=== PATIENT | male | born 1955 | race Two or more races ===

== ENCOUNTER 2019-01-31 05:09 | Day surgery (SDC) | payer OTHER ==
[2019-01-30 11:53] VITALS: BMI 30.2
[2019-01-31 12:23] VITALS: BP 136/81; PULSE 82; TEMP 98
--- NOTE | 2019-01-31 13:44 | OP ---
Operative Note - Note: Operative Date: 01/31/19 Pre-Operative Diagnosis: L ureteral calculus Operation: L ureteroscopic laser lithotripsy and JJ stent insertion Surgeon: Eric Frazier Anesthesia: General Specimens Removed: L ureteral calculus Drains & Tubes with Location: 6 fr 26 cm L JJ stent Operative Report Dictated: Yes
[2019-01-31] MEDS ORDERED: oxyCODONE HCL 5 MG TABLET PO PRN (14:19)
[2019-01-31] MEDS ORDERED: LACTATED RINGERS SOLUTION 1,000 ML IV SCH (14:30)
== END 2019-01-31 13:10 | disposition home or self-care (01) ==
LOC: JASU-SURG 05:09
PROVIDERS: ATTEND Urology
DX: Z53.8 Procedure and treatment not carried out for other reasons (principal)
CPT/HCPCS: 82962

== ENCOUNTER 2019-02-14 11:50 | Day surgery (SDC) | payer OTHER ==
[2019-02-14 12:32] VITALS: BMI 28.3
--- NOTE | 2019-02-14 13:26 | OP ---
Operative Note - Note: Operative Date: 02/14/19 Pre-Operative Diagnosis: BPH w LUTS Operation: urolift x 5 Findings: BPH Post-Operative Diagnosis: Same as Pre-op Surgeon: Eric Frazier Anesthesiologist/CLINICAL RESOURCE DIRECTOR: Martin Burch Anesthesia: General Drains & Tubes with Location: 18 fr ugarte Operative Report Dictated: Yes
[2019-02-14] MEDS ORDERED: MIDAZOLAM HCL 2 MG/2 ML SINGLE DOSE VIAL ONE ×2 (13:36→13:45)
[2019-02-14] MEDS ORDERED: DEXAMETHASONE SOD PHOSPHATE 4 MG/1 ML VIAL ONE ×2 (13:36→13:45)
[2019-02-14] MEDS ORDERED: ceFAZolin SODIUM 1 GM VIAL ONE (13:37)
[2019-02-14] MEDS ORDERED: LIDOCAINE HCL/PF 2% SDV 5ML VIAL ONE (13:45)
[2019-02-14] MEDS ORDERED: PROPOFOL 20 ML ONE ×2 (13:45)
[2019-02-14] MEDS ORDERED: LIDOCAINE HCL 2% JELLY (5 ML/TUBE) ONE (13:45)
[2019-02-14] MEDS ORDERED: KETOROLAC TROMETHAMINE 30 MG/1 ML VIAL ONE (13:45)
[2019-02-14] MEDS ORDERED: SUCCINYLCHOLINE CHLORIDE 200 MG/10 ML SYRINGE ONE (13:45)
[2019-02-14] MEDS ORDERED: ceFAZolin SODIUM 1 GM VIAL IVPB ONE (14:07)
[2019-02-14] MEDS ORDERED: HYDROmorphone HCl 2 MG/ML VIAL ONE (15:30)
--- NOTE | 2019-02-14 15:43 | OP ---
DATE OF OPERATION: 02/14/2019 PREOPERATIVE DIAGNOSIS: Benign prostatic hypertrophy with lower urinary tract symptoms. POSTOPERATIVE DIAGNOSIS: Benign prostatic hypertrophy with lower urinary tract symptoms. PROCEDURE: Urolith x5. SURGEON: Eric Cherry MD CONDITIONER TUMBLER OPERATOR: None. ANESTHESIA: General via laryngeal mask. ANESTHESIOLOGIST: Martin Burch MD SPECIMENS: None. CULTURES: None. DRAINS: 18-Irish Bermudez catheter. ESTIMATED BLOOD LOSS: Negligible. COMPLICATIONS: None. DESCRIPTION OF PROCEDURE: Patient was brought into the operating room. Placed on the operating room table in the supine position. After administration of general anesthesia via laryngeal mask, intravenous antibiotics were administered. The patient was placed in the dorsal lithotomy position. The genitals and perineum were prepped and draped in the usual sterile manner. The urethral meatus was dilated from 18 to 26 Irish with curved sounds. The urolith scope was inserted into the anterior urethra under direct vision. The anterior urethra was normal. The prostatic urethra measured approximately 4-1/2 cm in length. Demonstrated moderate bilobar occlusion. The bladder was entered and thoroughly inspected. There were no foreign bodies, tumors, stones, inflammation. Both ureteral orifices were in their usual location with clear efflux bilaterally. Now the urolith implant was inserted. The 1st one was placed at the level of the verumontanum on the left side at the 2 o'clock position. Another one was placed on the right side at the 10 o'clock position at the level of the verumontanum. Now another one was placed distal to the bladder neck at the left side 2 o'clock position and another one at the right side distal to the bladder neck at the 10 o'clock position. Upon reinspection, there was additional obstruction on the right lateral lobe of the prostate distally, so a 5th implant was placed at this location. Now there was a wide open channel. Hemostasis was adequate. The bladder was left full. Instrument removed. An 18-Irish Bermudez catheter was placed. It was placed on gravity drainage with 10 mL in the balloon, drained minimally blood tinged. Tolerated the procedure well. Transferred to the recovery room in stable condition. ERIC CHERRY M.D. [id number]
[2019-02-14] MEDS ORDERED: ONDANSETRON 4 MG/2 ML VIAL ONE (15:47)
[2019-02-14] MEDS ORDERED: ONDANSETRON 4 MG/2 ML VIAL IVPUSH PRN (16:43)
[2019-02-14] MEDS ORDERED: oxyCODONE HCL 5 MG TABLET PO PRN ×2 (16:43)
[2019-02-14] MEDS ORDERED: HYDROmorphone HCl 2 MG/ML VIAL IVPB ONE (16:44)
[2019-02-14] MEDS ORDERED: LACTATED RINGERS SOLUTION 1,000 ML IV SCH (16:45)
[2019-02-14 16:46] VITALS: TEMP 97.6
[2019-02-14 18:06] VITALS: BP 145/82; PULSE 74
== END 2019-02-14 18:08 | disposition home or self-care (01) ==
LOC: JASU-SURG 11:50
PROVIDERS: ATTEND Urology
PROC: 0T7D8DZ Dilation of Urethra with Intraluminal Device, Via Natural or Artificial Opening Endoscopic (ICD-10-PCS; principal; 2019-02-14 13:00)
DX: N40.1 Benign prostatic hyperplasia with lower urinary tract symptoms (principal)
CPT/HCPCS: 82962; 94760

== ENCOUNTER 2021-06-17 04:19 | Inpatient (IN) | payer OTHER ==
[2021-06-17] MEDS ORDERED: PROPOFOL 20 ML ONE ×2 (13:13)
[2021-06-17] MEDS ORDERED: MIDAZOLAM HCL 2 MG/2 ML SINGLE DOSE VIAL ONE (13:13)
[2021-06-17] MEDS ORDERED: ceFAZolin SODIUM 1 GM VIAL IVPB ONE (13:26)
[2021-06-17] MEDS ORDERED: ONDANSETRON 4 MG/2 ML VIAL IVPUSH PRN (14:40)
[2021-06-17] MEDS ORDERED: LACTATED RINGERS SOLUTION 1,000 ML IV SCH (14:45)
[2021-06-17 16:19] LABS: BASO % 0.6 % (0-2.0); EOS % 9.2 % (0-4.5); HEMATOCRIT 39.3 % (35.4-49); HEMOGLOBIN 13.7 GM/dL (11.7-16.9); LYMPH % 26.6 % (8-40); MCHC 34.9 g/dl (32.0-35.9); MEAN CELL VOLUME 83.1 fl (80-96); MONO % 10.6 % (3.8-10.2); PLATELET COUNT 122 10^3/uL (134-434); RBC 4.73 M/mm3 (4.00-5.60); RDW 13.3 % (11.9-15.9); WHITE BLOOD COUNT 3.5 K/mm3 (4.0-10.0)
[2021-06-17 16:44] LABS: CALCIUM 7.9 mg/dL (8.5-10.1)
[2021-06-17 16:45] LABS: ALBUMIN 3.1 g/dl (3.4-5.0); BLOOD UREA NITROGEN 18.4 mg/dL (7-18)
[2021-06-17 16:48] LABS: TOT PROT 5.9 g/dl (6.4-8.2)
[2021-06-17 16:50] LABS: BILIRUBIN,TOTAL 0.6 mg/dL (0.2-1)
[2021-06-17] MEDS: SODIUM CHLORIDE 0.45% 1,000 ML IV SCH (17:30)
[2021-06-17] MEDS ORDERED: oxyCODONE HCL 5 MG TABLET PO PRN (17:45)
[2021-06-17] MEDS: metFORMIN HCL 500 MG TABLET (FP) PO SCH (18:44)
[2021-06-17] MEDS: oxyCODONE HCL 5 MG TABLET PO PRN (18:44)
[2021-06-17] MEDS ORDERED: ceFAZolin SODIUM 1 GM VIAL ONE (20:58)
[2021-06-17] MEDS ORDERED: DEXTROSE 5%-WATER - 50 ML IVPB ONE (20:59)
[2021-06-17] MEDS: CEFAZOLIN 1 GM in DEXTROSE 5%-WATER - 50 ML IVPB SCH (21:47)
[2021-06-18] MEDS: oxyCODONE HCL 5 MG TABLET PO PRN ×3 (00:51→22:31)
[2021-06-18] MEDS: SODIUM CHLORIDE 0.45% 1,000 ML IV SCH ×3 (01:22→15:55)
[2021-06-18] MEDS ORDERED: ceFAZolin SODIUM 1 GM VIAL ONE ×3 (05:54→17:17)
[2021-06-18] MEDS ORDERED: DEXTROSE 5%-WATER - 50 ML IVPB ONE ×3 (05:54→17:17)
[2021-06-18] MEDS: CEFAZOLIN 1 GM in DEXTROSE 5%-WATER - 50 ML IVPB SCH ×3 (06:08→18:45)
[2021-06-18] MEDS: metFORMIN HCL 500 MG TABLET (FP) PO SCH ×2 (06:17→17:36)
[2021-06-18] MEDS: PANTOPRAZOLE 20 MG TABLET PO SCH (09:07)
[2021-06-18] MEDS: ACETAMINOPHEN 325 MG TABLET (FP) PO PRN ×2 (09:55→18:51)
[2021-06-18 10:06] LABS: HEMATOCRIT 40.6 % (35.4-49); MCH 28.7 pg (25.7-33.7); MCHC 34.5 g/dl (32.0-35.9); MEAN CELL VOLUME 83.1 fl (80-96); MEAN PLT VOLUME 9.4 fl (7.5-11.1); PLATELET COUNT 142 10^3/uL (134-434); RBC 4.89 M/mm3 (4.00-5.60); RDW 13.3 % (11.9-15.9); WHITE BLOOD COUNT 3.7 K/mm3 (4.0-10.0)
[2021-06-18 10:35] LABS: BLOOD UREA NITROGEN 10.8 mg/dL (7-18); CALCIUM 8.4 mg/dL (8.5-10.1)
[2021-06-18 15:49] VITALS: BMI 31.0
[2021-06-19] MEDS ORDERED: ceFAZolin SODIUM 1 GM VIAL ONE ×3 (01:04→16:50)
[2021-06-19] MEDS ORDERED: DEXTROSE 5%-WATER - 50 ML IVPB ONE ×3 (01:04→16:51)
[2021-06-19] MEDS: CEFAZOLIN 1 GM in DEXTROSE 5%-WATER - 50 ML IVPB SCH ×3 (01:27→17:02)
[2021-06-19] MEDS: SODIUM CHLORIDE 0.45% 1,000 ML IV SCH ×3 (04:29→23:59)
[2021-06-19] MEDS: metFORMIN HCL 500 MG TABLET (FP) PO SCH ×2 (06:03→16:54)
[2021-06-19] MEDS: oxyCODONE HCL 5 MG TABLET PO PRN (07:46)
[2021-06-19] MEDS: PANTOPRAZOLE 20 MG TABLET PO SCH (09:03)
[2021-06-19 10:33] LABS: HEMOGLOBIN 13.9 GM/dL (11.7-16.9); RBC 4.86 M/mm3 (4.00-5.60); WHITE BLOOD COUNT 3.1 K/mm3 (4.0-10.0)
[2021-06-19 10:34] LABS: HEMATOCRIT 40.1 % (35.4-49); MCH 28.6 pg (25.7-33.7); MCHC 34.7 g/dl (32.0-35.9); MEAN CELL VOLUME 82.5 fl (80-96); MEAN PLT VOLUME 9.1 fl (7.5-11.1); PLATELET COUNT 142 10^3/uL (134-434); RDW 13.3 % (11.9-15.9)
[2021-06-19] MEDS: TAMSULOSIN HCL 0.4 MG CAP PO SCH (15:04)
[2021-06-19] MEDS: BACITRACIN/POLYMYXIN B SULFATE 15 GM TUBE TP SCH (21:42)
[2021-06-19 22:45] VITALS: TEMP 99.1
[2021-06-20] MEDS ORDERED: ceFAZolin SODIUM 1 GM VIAL ONE ×2 (00:02→08:44)
[2021-06-20] MEDS ORDERED: DEXTROSE 5%-WATER - 50 ML IVPB ONE ×2 (00:02→08:44)
[2021-06-20] MEDS: CEFAZOLIN 1 GM in DEXTROSE 5%-WATER - 50 ML IVPB SCH ×2 (01:02→09:02)
[2021-06-20] MEDS ORDERED: MELATONIN 5 MG TABLETS PO PRN (03:08)
[2021-06-20] MEDS: metFORMIN HCL 500 MG TABLET (FP) PO SCH ×2 (06:13→17:35)
[2021-06-20] MEDS: TAMSULOSIN HCL 0.4 MG CAP PO SCH (08:57)
[2021-06-20] MEDS: PANTOPRAZOLE 20 MG TABLET PO SCH (09:02)
[2021-06-20] MEDS: BACITRACIN/POLYMYXIN B SULFATE 15 GM TUBE TP SCH (09:02)
[2021-06-20 14:02] VITALS: BP 140/73; PULSE 94
[2021-06-20] MEDS: oxyCODONE HCL 5 MG TABLET PO PRN (14:53)
== END 2021-06-20 18:33 | disposition home or self-care (01) | DRG 482 ==
LOC: JASUSAT 04:19 → J8W 18:14
PROVIDERS: ADMIT Urology; ATTEND Urology
PROC: 0VT08ZZ Resection of Prostate, Via Natural or Artificial Opening Endoscopic (ICD-10-PCS; principal; 2021-06-17 13:00)
DX: N40.1 Benign prostatic hyperplasia with lower urinary tract symptoms (principal); N32.0 Bladder-neck obstruction; R50.9 Fever, unspecified
CPT/HCPCS: 36415; 80048; 80053; 82962; 85025; 85027; 87040; 87086; 88305-TC; 94760